=== PATIENT | female | born 1965 | race Caucasian/White ===

== ENCOUNTER 2016-06-19 17:12 | Emergency (ER) | payer OTHER ==
--- NOTE | 2016-06-19 18:01 | EDM.PDOC ---
ED HPI HEADACHE COMPLAINT - General Chief Complaint: Headache Stated Complaint: PAIN IN BACK OF HEAD Time Seen by Provider: 06/19/16 17:55 Source of Information: Reports: Patient History Limitations: Reports: No limitations - History of Present Illness INITIAL COMMENTS - FREE TEXT/NARRATIVE: Patient presents for evaluation and treatment of right-sided posterior head pain. Patient reports that the pain started Sunday. she describes as spasms. Patient reports on Sunday the pain was quite severe and rates as a 9 or 10 out of 10. She states she was getting 2 or 3 every hour. She states that her posterior scalp was tender to touch. She states that each episode lasting about 5 seconds. Patient reports Sunday the pain improved and reports one episode every 2 hours and states the pain was 6 or 7/10. Today she she recorded the episodes. States that the pain is only a 2/10 today. Lasted about 3 seconds. The pain has always been in the posterior right head. Patient denies any weight loss or weight gain unexplained, weakness, fatigue, speech disturbance, gait disturbances, vision changes, nausea, vomiting, neck pain or back pain. Patient was seen by her primary care provider about one month ago for an annual exam. She had labs done and her thyroid was adjusted. She was instructed to followup for repeat of her thyroid level in about 6-8 weeks. Patient has multiple medical problems including CREST syndrome, scleroderma, Grave's disease and heart problems. - Related Data Allergies/ADRs: Allergies Allergy/AdvReac Type Severity Reaction Status Date / Time Penicillins Allergy Hives Verified 06/19/16 17:34 Home Meds: Home Meds Aspirin [Qulin Aspirin] 81 mg PO DAILY 06/19/16 [History] Cholecalciferol (Vitamin D3) [Vitamin D3] 5,000 unit PO DAILY 06/19/16 [History] Ciclopirox/Ure/Camph/Menth/Euc [Ciclopirox 8% Treatment Kit] 1 applic TOP ASDIRECTED 06/19/16 [History] Cyanocobalamin (Vitamin B-12) [Vitamin B-12] 1,000 mcg PO DAILY 06/19/16 [ History] Esomeprazole [NexIUM] 40 mg PO DAILY 06/19/16 [History] Levothyroxine [Synthroid] 137 mcg PO DAILY 06/19/16 [History] Mycophenolate Mofetil [Cellcept] 500 mg PO DAILY 06/19/16 [History] Selenium [Selenomax] 1 tab PO DAILY 06/19/16 [History] Triamcinolone Acetonide [Triamcinolone Acetonide 0.1% Crm] 1 applic TOP ASDIRECTED PRN 06/19/16 [History] amLODIPine [Norvasc] 5 mg PO DAILY 06/19/16 [History] Past Medical History Cardiovascular History: Reports: Afib, Cardiomyopathy, Heart Failure, Other ( see below) Other Cardiovascular History: diastolic heart failure Respiratory History: Reports: Other (see below) Other Respiratory History: dyspnea on exertion Neurological History: Reports: Other (see below) Other Neuro History: bilateral thoracic sympathectomy Endocrine/Metabolic History: Reports: Other (see below) Other Endocrine/Metabolic History: Grave's disease. CREST. limited scleroderma. - Past Surgical History HEENT Surgical History: Reports: Tonsillectomy Female Surgical History: Reports: Tubal ligation Social & Family History - Tobacco Use Smoking Status *Q: Never Smoker - Caffeine Use Caffeine Use: Reports: None - Recreational Drug Use Recreational Drug Use: No ED ROS GENERAL - Review of Systems Review Of Systems: See Below Constitutional: Denies: fever, fatigue, weight loss, weight gain HEENT: Denies: Ear pain, Sinus problem, Throat pain Respiratory: Denies: Cough GI/Abdominal: Denies: Nausea, Vomiting Musculoskeletal: Denies: neck pain, back pain Neurological: Reports: Headache (posterior right) - Physical Exam Exam: See Below Exam Limited By: No limitations General Appearance: alert, WD/WN, no apparent distress Eye Exam: bilateral eye: PERRL Ears: normal external exam, normal canal, hearing grossly normal, normal TMs Nose: normal inspection Throat/Mouth: Normal inspection, Normal voice, No airway compromise Neck: normal inspection, supple, non-tender, full range of motion Respiratory/Chest: no respiratory distress, lungs clear, normal breath sounds Cardiovascular: normal peripheral pulses, regular rate, rhythm, no murmur Neuro Exam (Abbreviated): alert, oriented, CN II-XII intact, normal cognition, normal gait, other (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 ) Psychiatric: normal affect, normal mood Skin Exam: Warm, Dry, Normal color Course - Vital Signs Last Recorded V/S: Last Vital Signs Temp 36.2 C 06/19/16 17:31 Pulse 70 06/19/16 17:31 Resp 16 06/19/16 17:31 BP 139/82 06/19/16 17:31 Pulse Ox 100 06/19/16 17:31 - Orders/Labs/Meds Orders: Active Orders 24 hr Category Date Time Status Head wo Cont [CT] Stat Exams 06/19/16 17:55 Ordered - Radiology Interpretation Free Text/Narrative:: CT of the head without contrast impression per Vrad: No acute findings. CT Results Date: 06/19/16 - Re-Assessments/Exams Free Text/Narrative Re-Assessment/Exam: 06/19/16 18:50 I reviewed the head CT results with the patient. reassured patient. Discharge instructions as documented. Departure - Departure Time of Disposition: 18:55 Disposition: Home, Self-Care 01 Condition: good Clinical Impression: Muscle spasm Referrals: Melissa Torres PA-C [Primary Care Provider] - Forms: ED Department Discharge Additional Instructions: OTC tylenol or motrin as needed for pain and discomfort. Heat or ice to the sore area. Follow-up with PCP if your symptoms do not improve in 7-10 days. Please return to the ER should your symptoms change or worsen. - My Orders Last 24 Hours: My Active Orders 06/19/16 17:55 Head wo Cont [CT] Stat - Assessment/Plan Last 24 Hours: My Active Orders 06/19/16 17:55 Head wo Cont [CT] Stat
[2016-06-19 19:12] VITALS: BP 111/74
--- NOTE | 2016-06-20 08:54 | CT ---
Head CT Technique: Multiple axial sections through the brain were obtained. Intravenous contrast was not utilized. Comparison: No previous intracranial imaging. Findings: Ventricles along with basal cisterns and sulci over the convexities are within normal limits for the patient's age. No abnormal parenchymal densities are seen. No evidence of intracranial hemorrhage. No midline shift or mass effect is seen. Near complete opacification of the left sphenoid sinus is seen. Other visualized sinuses are clear. Impression: 1. Findings within the left sphenoid sinus most likely representing chronic sinusitis. 2. No acute intracranial abnormality is appreciated. Agree with preliminary report issued by [facility] (preliminary report dictated on 06/19/16, 7:41 PM Central Type) Diagnostic code #3
== END 2016-06-19 19:12 | disposition home or self-care (01) ==
LOC: JD.ED 17:12
DX: M62.838 Other muscle spasm (principal); R51 Headache; I48.91 Unspecified atrial fibrillation; I50.9 Heart failure, unspecified; Z98.890 Other specified postprocedural states; Z88.0 Allergy status to penicillin; Z79.82 Long term (current) use of aspirin; Z79.899 Other long term (current) drug therapy
CPT/HCPCS: 70450; 70450-26; 99282; 99284-25

== ENCOUNTER 2019-01-27 17:17 | Emergency (ER) | payer OTHER ==
[2019-01-27 17:25] VITALS: BP 153/78; PULSE 76
--- NOTE | 2019-01-27 18:15 | EDM.PDOC ---
ED HPI GENERAL MEDICAL PROBLEM - General Chief Complaint: Upper Extremity Injury/Pain Stated Complaint: R HAND FINGER SKIN COMPLAINT Time Seen by Provider: 01/27/19 17:55 - History of Present Illness INITIAL COMMENTS - FREE TEXT/NARRATIVE: 53-year-old female presents emergency room with increasing pain and swelling in her right ring finger. 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 She has calcifications in this digit. And it is almost always sore. Over the last several days she's had increasing swelling and redness and warmth at the distal end of this finger near the calcinosis. The patient has not had any other symptoms she's not noticed any fevers or chills. Right Finger-Ring Pain Score (Numeric/FACES): 10 - Related Data Allergies Allergy/AdvReac Type Severity Reaction Status Date / Time Penicillins Allergy Hives Verified 01/27/19 17:26 Home Meds: Home Meds Cholecalciferol (Vitamin D3) [Vitamin D3] 5,000 unit PO DAILY 06/19/16 [History] Cyanocobalamin (Vitamin B-12) [Vitamin B-12] 1,000 mcg PO DAILY 06/19/16 [ History] Esomeprazole [NexIUM] 40 mg PO DAILY 06/19/16 [History] Levothyroxine [Synthroid] 137 mcg PO DAILY 06/19/16 [History] Mycophenolate Mofetil [Cellcept] 500 mg PO BID 06/19/16 [History] Selenium [Selenomax] 1 tab PO DAILY 06/19/16 [History] Triamcinolone Acetonide [Triamcinolone Acetonide 0.1% Crm] 1 applic TOP ASDIRECTED PRN 06/19/16 [History] amLODIPine [Norvasc] 5 mg PO BID 06/19/16 [History] Ciclopirox/Ure/Camph/Menth/Euc [Ciclopirox 8% Treatment Kit] 1 dose TOP ASDIRECTED 01/08/18 [History] Fish Oil/Borage/Flax/Om3,6,9 1 [Alvin 3-6-9 1,200 mg Softgel] 1,200 mg PO DAILY 01/08/18 [History] Glucosam/Chondr/Collagn/Hyalur [Glucosamine & Chondroitin Cap] 1 cap PO DAILY [History] Acetaminophen/HYDROcodone [[place]io[place] 325-5 MG] 1 - 2 tab PO Q6H PRN #20 tablet 01/27 [Rx] Cephalexin [Keflex] 500 mg PO Q6H #28 capsule 01/27/19 [Rx] Past Medical History HEENT History: Reports: Impaired Vision, Other (See Below) Other HEENT History: pharyngitis, wears glasses Cardiovascular History: Reports: Afib, Cardiomyopathy, Heart Failure, High Cholesterol, Other (See Below) Other Cardiovascular History: diastolic heart failure Respiratory History: Reports: SOB, Other (See Below) Other Respiratory History: dyspnea on exertion Gastrointestinal History: Reports: GERD Genitourinary History: Reports: None [employer] N[employer]SE [employer]ACTITIONER History: Reports: Musculoskeletal History: Reports: None Neurological History: Reports: None, Other (See Below) Other Neuro History: bilateral thoracic sympathectomy Psychiatric History: Reports: None Endocrine/Metabolic History: Reports: Hypothyroidism, Other (See Below) Other Endocrine/Metabolic History: Grave's disease. CREST. limited scleroderma, reynauds Hematologic History: Reports: None Immunologic History: Reports: None Oncologic (Cancer) History: Reports: None Dermatologic History: Reports: None - Past Surgical History Head Surgeries/Procedures: Reports: None HEENT Surgical History: Reports: Tonsillectomy Cardiovascular Surgical History: Reports: Other (See Below) Other Cardiovascular Surgeries/Procedures: ablation for afib Respiratory Surgical History: Reports: None GI Surgical History: Reports: None Female Surgical History: Reports: Tubal Ligation Endocrine Surgical History: Reports: None Musculoskeletal Surgical History: Reports: None Oncologic Surgical History: Reports: None Dermatological Surgical History: Reports: None Social & Family History - Tobacco Use Smoking Status *Q: Never Smoker Second Hand Smoke Exposure: No - Caffeine Use Caffeine Use: Reports: Coffee, Soda - Recreational Drug Use Recreational Drug Use: No Review of Systems - Review of Systems Review Of Systems: See Below Constitutional: Reports: No Symptoms Ears: Reports: No Symptoms Nose: Reports: No Symptoms Mouth/Throat: Reports: No Symptoms Respiratory: Reports: No Symptoms Cardiovascular: Reports: No Symptoms GI/Abdominal: Reports: No Symptoms Genitourinary: Reports: No Symptoms Musculoskeletal: Reports: No Symptoms Skin: Reports: Other (See history of present illness). Denies: No Symptoms Neurological: Reports: No Symptoms Psychiatric: Reports: No Symptoms ED EXAM, GENERAL - Physical Exam Exam: See Below Exam Limited By: No Limitations General Appearance: Alert, No Apparent Distress Head: Atraumatic, Normocephalic Neck: Normal Inspection, Supple, Non-Tender, Full Range of Motion Respiratory/Chest: No Respiratory Distress, Lungs Clear, Normal Breath Sounds Cardiovascular: Normal Peripheral Pulses, Regular Rate, Rhythm, No Edema Back Exam: Normal Inspection. No: CVA Tenderness (L), CVA Tenderness (R) Extremities: Other (She indeed has sclerodactyly and what to be calcinosis of the right ring finger distal tip she has increasing redness and tenderness of this area the redness extends proximal to the DIPJ. The redness is associated with some warmth.) Skin Exam: Other (She has telangiectasias to some degree over all exposed skin and mucous membranes.) Lymphatic: No Adenopathy Course - Vital Signs Last Recorded V/S: Last Vital Signs Temp 36.5 C 01/27/19 17:24 Pulse 76 01/27/19 17:24 Resp 18 01/27/19 17:24 BP 153/78 H 01/27/19 17:24 Pulse Ox 99 01/27/19 17:24 - Re-Assessments/Exams Free Text/Narrative Re-Assessment/Exam: 01/27/19 18:41 Don't believe and x-rays necessarily get help me. She's had no areas of fluctuation under this redness and swelling. Lab work is getting be compromised because of her autoimmune situation and it is not generally all that helpful with a developing cellulitis. The patient is cautioned that she is getting very close clinical follow-up to make sure this is improving. Departure - Departure Time of Disposition: 18:42 Disposition: Home, Self-Care 01 Clinical Impression: Cellulitis of right ring finger - Discharge Information Prescriptions: Acetaminophen/HYDROcodone [[place]io[place] 325-5 MG] 1 - 2 tab PO Q6H PRN #20 tablet PRN Reason: Pain Cephalexin [Keflex] 500 mg PO Q6H #28 capsule Instructions: Cellulitis, Adult Referrals: Roshni Roberts PA-C [Primary Care Provider] - Additional Instructions: Return to emergency room with any questions problems or worsening symptoms. Recheck in the emergency room or in the clinic in 2-3 days if not improving. As much as practical keep your finger elevated. Take the medications as directed
== END 2019-01-27 19:00 | disposition home or self-care (01) ==
LOC: JD.ED 17:17
DX: L03.011 Cellulitis of right finger (principal); I50.30 Unspecified diastolic (congestive) heart failure; E03.9 Hypothyroidism, unspecified; K21.9 Gastro-esophageal reflux disease without esophagitis; Z88.0 Allergy status to penicillin; Z79.890 Hormone replacement therapy; Z79.899 Other long term (current) drug therapy
CPT/HCPCS: 99283